=== PATIENT | female | born 1970 | race Caucasian/White ===

== ENCOUNTER → 2016-10-09 | Outpatient (CLI) | payer OTHER ==
[2016-10-09 20:43] LABS: FREE T4 1.02 NG/DL (0.76-1.46)
== END ==
LOC: M LRY 16:11
PROVIDERS: ATTEND Physician Assistant Medical
DX: E89.0 Postprocedural hypothyroidism (principal)

== ENCOUNTER → 2016-11-04 | Day surgery (SDC) | payer OTHER ==
[~2016-11-04] VITALS: Ht 167.6 cm; Wt 73.5 kg
[~2016-11-04] MED LIST: BACITRACIN OINT 30GM As Ordered ONE; BUPIVACAINE/EPIN 0.5% 30 ML VIAL As Ordered ONE; BUPIVACAINE/EPIN 0.5% 30 ML VIAL XX ONE; BUPR150T5 PO; CALC600T21 PO; CLAR10CA3 PO; CLOB0.0526 EX; DOXY-278 PO; ESTR1TAB PO; FENO48TA2 PO; FOLI800T PO; LEVO150T7 PO; LIDOCAINE 2% INJ 100 MG/5 ML SDV (FOR ANES.) As Ordered ONE; LIDOCAINE W/EPINEPHRINE 1% 20ML VIAL As Ordered ONE; LIDOCAINE W/EPINEPHRINE 1% 20ML VIAL SQ ONE; LR 1,000 ML IV SCH; METF500T PO; MIDAZOLAM INJ 2 MG/2 ML VIAL (J2250) As Ordered ONE; MULT1TAB10 PO; OMEP20CA3 PO; ONDANSETRON 4MG/2ML VIAL (J2405) As Ordered ONE; ONDANSETRON 4MG/2ML VIAL (J2405) IV PRN; PERCOCET 5MG/325MG TAB PO PRN; PRO-CAP PO; PROPOFOL 200 MG/20 ML VIAL As Ordered ONE; ROCURONIUM BROMIDE 50 MG/5 ML VIAL As Ordered ONE; SIMV20TA2 PO; SPIR25TA2 PO; VITA100T20 PO; VITA500046 PO; dexameTHASONE 4 MG/ML 1ML VIAL (J1100) As Ordered ONE; fentaNYL 100 MCG/2 ML INJECTION (J3010) IV PRN; fentaNYL 250 MCG/5 ML INJECTION (J3010) As Ordered ONE
[2016-11-04 06:48] LABS: CONTROL LINE HCG INT CTR LINE PRESENT
[2016-11-04 10:30] VITALS: BP 100/64
--- NOTE | 2016-11-04 10:58 | RO ---
DATE OF PROCEDURE: 11/04/2016 PREPROCEDURE DIAGNOSIS: Chronic hydradenitis suppurativa, unresolved lesions of the vulva with pain. POSTPROCEDURE DIAGNOSIS: Chronic hydradenitis suppurativa, unresolved lesions of the vulva with pain. SURGEON: Dr. Veronica Loyola MD AIRFIELD MANAGER: Dr. South Burnett MD CLINICAL SERVICE: GYNECOLOGY INDICATION FOR OPERATION: Sapna is a 45-year-old, 0 with chronic hydradenitis suppurativa, that has been very well controlled on her medication regimen; however, she has multiple chronic lesions that are unresolved and very painful to her in her vulvar region that she wished to have removed. MATERIAL FORWARDED TO LAB FOR EXAMINATION: Chronic hydradenitis vulvar lesions. DESCRIPTION OF FINDINGS: On inspection of the perineum, there are dozens of small chronic nodules related to hydradenitis suppurativa; however, prior to the surgery Sapna and Holly went through each lesion and she noted which ones were the most painful to her. They included a cluster of three lesions to the right of her clitoris, as well as two at the bottom of her vaginal introitus, a cluster of three lesions on her right buttock and one lesion on her left buttock. INFECTION CLASSIFICATION: II. ESTIMATED BLOOD LOSS: 10 mL. IV FLUIDS: 1200 mL of lactated Ringers. URINE OUTPUT: Not measured. OPERATION PERFORMED: Excision of vulvar lesions. DESCRIPTION OF PROCEDURE: After obtaining informed consent, Sapna was taken to the operating room where she underwent IV sedation. She was placed in low lithotomy position and the perineum and vagina were prepped and draped in a sterile fashion. At that point, we began to excise the lesions one by one, starting superiorly and the method we used was creating a very small ellipse around the lesions using a scalpel and then undermining to ensure that we removed the whole lesion including the capsule using Metzenbaum scissors versus scalpel versus Bovie. As described in the findings, there were five total incisions on the right side of the perineum and buttocks, and then one small lesion was removed on the left buttock as well. For closure, we used #4-0 Vicryl in a running fashion to undermine the lesions that had greater depth to them but the very shallow lesions we simply used #4-0 Monocryl to reapproximate the skin in a running fashion. All the lesions were closed with #4-0 Monocryl for the skin layer. We used Lidocaine with epinephrine 1% to anesthetize the lesions before we incised them all. At the end of the procedure, we used 0.25% Marcaine for all of the incisions to give her a lasting anesthetic effect. There was complete hemostasis noted at the end of the procedure and all counts were correct times two. She tolerated the procedure well and was awakened from her sedation and sent to postop to recover. LAUREN
== END | disposition home or self-care (01) ==
LOC: M SDC 05:47
PROVIDERS: ATTEND Obstetrics & Gynecology
DX: L73.2 Hidradenitis suppurativa (principal); E11.9 Type 2 diabetes mellitus without complications; G47.30 Sleep apnea, unspecified; Z79.899 Other long term (current) drug therapy; E78.5 Hyperlipidemia, unspecified; Z92.3 Personal history of irradiation; E03.9 Hypothyroidism, unspecified; F17.210 Nicotine dependence, cigarettes, uncomplicated
CPT/HCPCS: 11470; 36415; 84702; 84703; 85014; 85018; 88304; J1100; J2250; J2405; J3010

== ENCOUNTER → 2017-03-17 | Outpatient (CLI) | payer OTHER ==
[~2017-03-17] MED LIST changes: -BACITRACIN OINT 30GM As Ordered ONE; -BUPIVACAINE/EPIN 0.5% 30 ML VIAL As Ordered ONE; -BUPIVACAINE/EPIN 0.5% 30 ML VIAL XX ONE; -LIDOCAINE 2% INJ 100 MG/5 ML SDV (FOR ANES.) As Ordered ONE; -LIDOCAINE W/EPINEPHRINE 1% 20ML VIAL As Ordered ONE; -LIDOCAINE W/EPINEPHRINE 1% 20ML VIAL SQ ONE; -LR 1,000 ML IV SCH; -MIDAZOLAM INJ 2 MG/2 ML VIAL (J2250) As Ordered ONE; -ONDANSETRON 4MG/2ML VIAL (J2405) As Ordered ONE; -ONDANSETRON 4MG/2ML VIAL (J2405) IV PRN; -PERCOCET 5MG/325MG TAB PO PRN; -PROPOFOL 200 MG/20 ML VIAL As Ordered ONE; -ROCURONIUM BROMIDE 50 MG/5 ML VIAL As Ordered ONE; -dexameTHASONE 4 MG/ML 1ML VIAL (J1100) As Ordered ONE; -fentaNYL 100 MCG/2 ML INJECTION (J3010) IV PRN; -fentaNYL 250 MCG/5 ML INJECTION (J3010) As Ordered ONE
[2017-03-17 20:29] LABS: FREE T4 1.08 NG/DL (0.76-1.46)
== END ==
LOC: M LRY 15:43
PROVIDERS: ATTEND Physician Assistant Medical
DX: E89.0 Postprocedural hypothyroidism (principal); E55.9 Vitamin D deficiency, unspecified

== ENCOUNTER → 2017-06-14 | Outpatient (CLI) | payer OTHER ==
[~2017-06-14] MED LIST changes: -CALC600T21 PO; +CALC600T60 PO; +DONN1TAB PO; -METF500T PO; +METF500T13 PO; +TRAM50TA2 PO; +ZYRT10CA PO
[2017-06-14 18:45] LABS: FREE T4 1.05 NG/DL (0.76-1.46)
== END ==
LOC: M LRY 15:01
PROVIDERS: ATTEND Internal Medicine Endocrinology, Diabetes & Metabolism
DX: E89.0 Postprocedural hypothyroidism (principal); E28.2 Polycystic ovarian syndrome

== ENCOUNTER 2017-06-29 19:20 | Emergency (ER) | payer OTHER ==
[~2017-06-29] VITALS: Ht 167.6 cm; Wt 74.1 kg
[2017-06-29 19:20] VITALS: BP 123/78
[~2017-06-29 19:20] MED LIST changes: -DONN1TAB PO; -TRAM50TA2 PO; -ZYRT10CA PO
[2017-06-29] MEDS ORDERED: TRAM50TA2 PO (20:02)
[2017-06-29] MEDS ORDERED: ZYRT10CA PO (20:02)
[2017-06-29] MEDS ORDERED: DONN1TAB PO (20:02)
== END 2017-06-29 21:06 | disposition left against medical advice (07) ==
LOC: M ED 19:20
DX: R10.9 Unspecified abdominal pain (principal); Z53.21 Procedure and treatment not carried out due to patient leaving prior to being seen by health care provider

== ENCOUNTER → 2017-07-07 | Outpatient (CLI) | payer OTHER ==
[~2017-07-07] MED LIST changes: +DONN1TAB PO; +TRAM50TA2 PO; +ZYRT10CA PO
--- NOTE | 2017-07-07 12:07 | REP ---
Hepatobiliary scan: History: Biliary colic. Report of [facility] CT abdomen from June 29, 2017 describes dilated loops of small bowel. Report of abdominal ultrasound from [facility] dated June 29, 2017 describes no abnormality. Technique: 6.6 mCi technetium 99m mebrofenin is injected and sequential anterior abdominal images are acquired. Findings: The initial hepatocellular parenchymal uptake phase is normal and homogeneous. At 10 minutes, the intrahepatic biliary tract and the gallbladder are first labeled. Subsequent images demonstrate normal washout from the liver parenchyma into the gallbladder. The small intestine is not visible during the first hour of imaging. A 3 hour delayed study was acquired which shows some intestinal uptake and persistent gallbladder uptake. Impression: Nonspecific mildly delayed biliary to bowel transit time. The cystic duct is patent. The exam is otherwise unremarkable. Signed by Subhash Lovelace MD 07/07/2017 01:26 P
== END ==
LOC: M RAD 08:10
PROVIDERS: ATTEND Physician Assistant Medical
DX: K80.51 Calculus of bile duct without cholangitis or cholecystitis with obstruction (principal)